=== PATIENT | female | born 1975 | race Caucasian/White ===

== ENCOUNTER 2017-03-21 07:53 | Emergency (ER) | payer OTHER ==
[~2017-03-21] VITALS: Ht 160 cm; Wt 111.6 kg
[~2017-03-21 07:53] MED LIST: CLARITIN10 MG PO; FLONASE16 G1 BOTH NARES; NOHOMEMEDS
[2017-03-21 08:29] LABS: EOSINOPHIL (%) 1.1 % (0-5); EOSINOPHIL COUNT 0.1 K/uL (0-0.3); HEMATOCRIT 38.7 % (36.0-46.0); IMMATURE GRANULOCYTE (%) 0.5 % (0.0-0.7); IMMATURE GRANULOCYTE COUNT 0.1 K/uL; LYMPHOCYTE COUNT 1.3 K/uL (1.0-2.8); MCH 30.6 PG (29.0-34.0); MCHC 33.3 G/DL (30.0-36.0); MCV 91.9 FL (83-99); MEAN PLAT.VOLUME 8.9 uM^3 (9.5-12.4); MONOCYTE (%) 7.6 % (3-12); MONOCYTE COUNT 0.9 K/uL (0-0.8); NEUTROPHIL (%) 80.6 % (45-76); PLATELET COUNT 272 K/uL (156-360); RBC DIS.WIDTH-CV 13.4 % (11.8-14.6); RED BLOOD COUNT 4.21 M/uL (3.80-5.20); WHITE BLOOD COUNT 12.4 K/uL (4.1-10.2)
[2017-03-21 08:36] LABS: CHLORIDE 101 mEq/L (99-109); POTASSIUM 3.8 mEq/L (3.7-5.4); SODIUM 138 mEq/L (136-147)
[2017-03-21 08:39] LABS: GLUCOSE 106 mg/dL (70-99)
[2017-03-21 08:40] LABS: ANION GAP 8 MEQ/L (2-14)
[2017-03-21 08:41] LABS: TOTAL BILIRUBIN 0.5 mg/dL (0.0-1.0)
[2017-03-21 08:42] LABS: ALKALINE PHOSPHATASE 87 IU/L (3-129); GFR ESTIMATE (CALCULATED) > 59 mL/min/
[2017-03-21 08:43] LABS: UREA NITROGEN (BUN) 12 mg/dL (9-23)
[2017-03-21] MEDS ORDERED: LISINOPRIL-HCT1 EACH PO (09:15)
[2017-03-21] MEDS ORDERED: PREDNISONE20 MG PO (09:50)
[2017-03-21] MEDS ORDERED: [UNRECOGNIZED DRUG - OTHER] PO (09:50)
[2017-03-21 10:16] VITALS: BP 117/77
== END 2017-03-21 10:21 | disposition home or self-care (01) ==
LOC: EME 07:53
PROVIDERS: Physician Assistant
DX: L50.9 Urticaria, unspecified (principal); D72.829 Elevated white blood cell count, unspecified; T38.0X5A Adverse effect of glucocorticoids and synthetic analogues, initial encounter; L40.9 Psoriasis, unspecified; I10 Essential (primary) hypertension; E78.5 Hyperlipidemia, unspecified
CPT/HCPCS: 80053; 83605; 85025; 99281; 99285; J2930; S0028